=== PATIENT | male | born 1930 | race Caucasian/White ===

== ENCOUNTER → 2016-08-04 | Outpatient (CLI) | payer MEDICARE, BC | LOC: MW.CHUR 09:56 | PROVIDERS: ATTEND Urology | DX: N40.1 Benign prostatic hyperplasia with lower urinary tract symptoms (principal); R97.20 Elevated prostate specific antigen [PSA] | CPT/HCPCS: 36415; 84153; G0463 ==

== ENCOUNTER → 2016-08-08 | Outpatient (CLI) | payer MEDICARE, BC | LOC: MW.CHFP 10:48 | PROVIDERS: ATTEND Family Medicine | DX: E11.49 Type 2 diabetes mellitus with other diabetic neurological complication (principal); G62.9 Polyneuropathy, unspecified | CPT/HCPCS: 36415; 82607; 84443; 99214 ==

== ENCOUNTER → 2016-09-06 | Outpatient (CLI) | payer MEDICARE, BC ==
[2016-09-06 08:36] LABS: CHLORIDE,CL 108 mmol/L (98-110); SODIUM,NA 141 mmol/L (136-146)
== END ==
LOC: MW.CHRC 07:57
PROVIDERS: ATTEND Family Medicine
DX: I10 Essential (primary) hypertension (principal); E78.00 Pure hypercholesterolemia, unspecified; E11.9 Type 2 diabetes mellitus without complications
CPT/HCPCS: 36415; 80053; 80061; 83036

== ENCOUNTER → 2016-09-07 | Outpatient (CLI) | payer MEDICARE, BC | LOC: MW.CHFP 08:00 | PROVIDERS: ATTEND Family Medicine | DX: E11.49 Type 2 diabetes mellitus with other diabetic neurological complication (principal); E11.21 Type 2 diabetes mellitus with diabetic nephropathy; E78.00 Pure hypercholesterolemia, unspecified; I10 Essential (primary) hypertension | CPT/HCPCS: 99215 ==

== ENCOUNTER 2019-10-23 19:03 | Emergency (ER) | payer MEDICARE, BC ==
[2019-10-23] MEDS ORDERED: Sodium Chloride 0.9% 1,000 ML IV ONE (19:19)
[2019-10-23] MEDS ORDERED: Ondansetron 4 MG/2 ML SDV IVPUSH ONE (19:19)
[2019-10-23 19:37] LABS: CARBON DIOXIDE,CO2 28.2 mmol/L (21.0-32.0); POTASSIUM,K 4.5 mmol/L (3.5-5.1)
--- NOTE | 2019-10-23 19:41 | EDM.PDOC ---
ED HPI GENERAL MEDICAL PROBLEM - General Chief Complaint: Abdominal Pain Stated Complaint: EMS Time Seen by Provider: 10/23/19 19:08 Source of Information: Reports: Patient History Limitations: Reports: No Limitations - History of Present Illness INITIAL COMMENTS - FREE TEXT/NARRATIVE: HISTORY AND PHYSICAL: History of present illness: This is an 89-year-old gentleman with a history significant for type 2 diabetes, coronary artery disease, who presents the ER today complaining of pain to his left side of the abdomen of started yesterday. Patient reports the pain yesterday was tolerable however this evening after eating dinner he reports the pain got much worse. Patient reports that he was able to eat a little bit of chicken this evening approximate 1 hour prior to arrival for dinner. Patient denies any recent fevers, shakes, chills. Patient with some nausea with no vomiting or diarrhea. Patient denies any dysuria frequency or urgency. Patient denies any melena or bright red blood per rectum. Patient denies any hematuria. Patient denies any history of diverticulitis or diverticulosis that he knows of in the past. Patient denies any history of kidney stones. Patient reports that he has a virgin abdomen with no prior abdominal surgeries. Patient reports he has had multiple stents in the past to his heart. No other abdominal or chest surgeries. Patient reports he has 1 drink every night with his . Patient reports he stopped smoking tobacco approximately 30 years ago. Patient denies any drugs. Patient has no known drug allergies. Review of systems: As per history of present illness and below otherwise all systems reviewed and negative. Past medical history: As per history of present illness and as reviewed below otherwise noncontri butory. Surgical history: As per history of present illness and as reviewed below otherwise noncontributory. Social history: No reported history of drug or alcohol abuse. Family history: As per history of present illness and as reviewed below otherwise noncontributory. Physical exam: Constitutional: Patient is oriented to person, place, and time. Appears well- developed and well-nourished. No distress. HEENT: Moist mucous membranes Head: Normocephalic and atraumatic Eyes: Right eye exhibits no discharge. Left eye exhibits no discharge. No scleral icterus Neck: Normal range of motion. No tracheal deviation present. Cardiovascular: Normal rate and regular rhythm. Pulmonary: Effort normal, no respiratory distress. Abd: Soft, nondistended, no rebound/guarding, no psoas or obturator signs, no tenderness at Mcberney's point, no Torres's sign. Pt does not present with an exam that would be consistent with an acute surgical abdomen at this time. Tenderness to palpation left side of his abdomen greatest in the left lower quadrant. Normal active bowel sounds Musculoskeletal: Normal range of motion Neurologic: Alert and oriented to person, place and time. Skin: [place], warm and dry. Psychiatric: Normal mood and affect. Behavior is normal. Judgment and thought content normal. Nursing note and vital signs have been reviewed Impression: This is a 89-year-old gentleman who presents ER today secondary to left lower quadrant abdominal pain that started yesterday and is worsening today. Patient has a virgin abdomen. Patient denies any urinary symptoms. Patient has any testicular pain. Patient's pain does not appear to be consistent with an acute surgical abdomen at this time. Patient will be given IV fluids and Zofran I will check a CBC, CMP, lipase and a CT scan of the abdomen pelvis without contrast. 8:41 PM: Patient's labs and studies have returned. Patient CT scan does not show any acute pathology. Patient does have a thoracic aneurysm on his CT scan that has been discussed with him and he will follow-up with his doctor for this. There is no evidence of diverticulitis, pancreatitis, intra-abdominal pathology. Patient's labs do show a slightly elevated WBC count with a normal differential. Repeat exam reveals patient with mild tenderness to palpation to the left lower quadrant. Once again the patient does not present with any signs or symptoms of an acute surgical abdomen. Abd: Soft, nondistended, no rebound/guarding, no psoas or obturator signs, no tenderness at Mcberney's point, no Torres's sign. Pt does not present with an exam that would be consistent with an acute surgical abdomen at this time normoactive bowel sounds. Mild tenderness palpation left lower quadrant. Patient has been given Toradol 15 mg IV after the CT report. Although the patient's lipase is slightly elevated it does not appear to be consistent with pancreatitis by CT scan and by physical exam. Patient presentation appears to be more consistent with diverticulitis. Patient will be empirically started on Levaquin and Flagyl empirically treat him for possible early diverticulitis. Patient be given a prescription for Ultram, Zofran, Levaquin, Flagyl and instructed to follow-up with a primary care physician. Reassessment at the time of disposition demonstrates that the patient is in no acute distress. The patient has remained stable throughout the entire ED visit and is without objective evidence for acute process requiring urgent intervention or hospitalization. The patient is stable for discharge, counseling is provided as documented above, discussed symptomatic treatment and specific conditions for return. I have spoken with the patient/caregive and discussed todays findings, in addition to providing specific details for the plan of care. Questions are answered and there is agreement with the plan. Plan: See above Treatments DIRECTOR OF SAFETY AND SECURITY: Reports: IV/IO Abdomen Pain Score (Numeric/FACES): 8 - Related Data Allergies Allergy/AdvReac Type Severity Reaction Status Date / Time No Known Allergies Allergy Verified 10/23/19 20:13 Home Meds: Home Meds Glimepiride 1 mg PO ASDIRECTED 10/23/19 [History] Pregabalin [Lyrica] 100 mg PO DAILY 10/23/19 [History] Simvastatin [Zocor] 80 mg PO BEDTIME 10/23/19 [History] lisinopriL [Lisinopril] 10 mg PO DAILY 10/23/19 [History] rOPINIRole [Requip] 1 mg PO BEDTIME 10/23/19 [History] Past Medical History HEENT History: Reports: Hard of Hearing Cardiovascular History: Reports: Blood Clots/VTE/DVT, High Cholesterol, Hypertension, [place] Respiratory History: Reports: None Gastrointestinal History: Reports: None Genitourinary History: Reports: None Musculoskeletal History: Reports: None Neurological History: Reports: None Psychiatric History: Reports: None Endocrine/Metabolic History: Reports: Diabetes, Type II Insulin Pump Model and Credit Union Teller: None Hematologic History: Reports: None Immunologic History: Reports: None Oncologic (Cancer) History: Reports: None Dermatologic History: Reports: None - Infectious Disease History Infectious Disease History: Reports: None - Past Surgical History Head Surgeries/Procedures: Reports: None Cardiovascular Surgical History: Reports: Coronary Artery Stent Musculoskeletal Surgical History: Reports: Other (See Below) Other Musculoskeletal Surgeries/Procedures:: back surgery Social & Family History - Family History Family Medical History: Noncontributory - Tobacco Use Smoking Status *Q: Former Smoker Used Tobacco, but Quit: No - Caffeine Use Caffeine Use: Reports: Coffee - Recreational Drug Use Recreational Drug Use: No ED ROS GENERAL - Review of Systems Review Of Systems: Comprehensive ROS is negative, except as noted in HPI. ED EXAM, GENERAL - Physical Exam Exam: See Below EKG INTERPRETATION EKG Interpretation Comments: EKG: Normal sinus rhythm heart rate of [address]-T wave abnormalities Normal axis No evidence of ST elevation [place] As interpreted by ER physician: Kaity Course - Vital Signs Last Recorded V/S: Last Vital Signs Temp 97.1 F 10/23/19 19:09 Pulse 62 10/23/19 19:09 Resp 18 10/23/19 19:09 BP 126/81 10/23/19 19:09 Pulse Ox 97 10/23/19 19:09 - Orders/Labs/Meds Labs: Laboratory Tests 10/23/19 10/23/19 10/23/19 Range/Units 19:00 19:10 19:10 WBC 15.13 H (4.0-11.0) K/uL RBC 4.45 L (4.50-5.90) M/uL Hgb 13.6 (13.0-17.0) g/dL Hct 42.1 (38.0-50.0) % MCV 94.6 (80.0-98.0) fL MCH 30.6 (27.0-32.0) pg MCHC 32.3 (31.0-37.0) g/dL RDW Std Deviation 57.4 (28.0-62.0) fl RDW Coeff of Nataliia 17 H (11.0-15.0) % Plt Count 301 (150-400) K/uL MPV 10.10 (7.40-12.00) fL Neut % (Auto) 43.6 L (48.0-80.0) % Lymph % (Auto) 49.6 H (16.0-40.0) % [place] % (Auto) 4.1 (0.0-15.0) % Eos % (Auto) 2.6 (0.0-7.0) % Baso % (Auto) 0.1 (0.0-1.5) % Neut # (Auto) 6.6 H (1.4-5.7) K/uL Lymph # (Auto) 7.5 H (0.6-2.4) K/uL [place] # (Auto) 0.6 (0.0-0.8) K/uL Eos # (Auto) 0.4 (0.0-0.7) K/uL Baso # (Auto) 0.0 (0.0-0.1) K/uL Nucleated RBC % 0.0 /100WBC Nucleated RBCs # 0 K/uL Sodium 138 (136-148) mmol/L Potassium 4.5 (3.5-5.1) mmol/L Chloride 102 (98-107) mmol/L Carbon Dioxide 28.2 (21.0-32.0) mmol/L BUN 25 H (7.0-18.0) mg/dL Creatinine 1.6 H (0.8-1.3) mg/dL Est Cr Clr Drug Dosing 31.91 mL/min Estimated GFR (MDRD) 41.0 ml/min Glucose 126 H (74-106) mg/dL Calcium 9.4 (8.5-10.1) mg/dL Total Bilirubin 0.3 (0.2-1.0) mg/dL AST 18 (15-37) IU/L ALT 27 (14-63) IU/L Alkaline Phosphatase 80 (46-116) U/L Total Protein 7.0 (6.4-8.2) g/dL Albumin 3.8 (3.4-5.0) g/dL Globulin 3.2 (2.6-4.0) g/dL Albumin/Globulin Ratio 1.2 (0.9-1.6) Lipase 453 H (73-393) U/L Urine Color YELLOW Urine Appearance CLEAR Urine pH 6.0 (5.0-8.0) Ur Specific [place] <= 1.005 (1.001-1.035) Urine Protein NEGATIVE (NEGATIVE) mg/dL Urine Glucose (UA) NEGATIVE (NEGATIVE) mg/dL Urine Ketones NEGATIVE (NEGATIVE) mg/dL Urine Occult Blood NEGATIVE (NEGATIVE) Urine Nitrite NEGATIVE (NEGATIVE) Urine Bilirubin NEGATIVE (NEGATIVE) Urine Urobilinogen 0.2 (<2.0) EU/dL Ur Leukocyte Esterase NEGATIVE (NEGATIVE) Meds: Medications Discontinued Medications Generic Name Dose Route Start Last Admin Trade Name Freq PRN Reason Stop Dose Admin Sodium Chloride 1,000 mls @ 1,000 mls/hr 10/23/19 19:19 10/23/19 19:51 Normal Saline IV 10/23/19 20:18 1,000 mls/hr BOLUS ONE Administration Ketorolac Tromethamine 15 mg 10/23/19 20:14 Toradol IVPUSH 10/23/19 20:15 ONETIME ONE Levofloxacin 500 mg 10/23/19 20:27 Levaquin PO 10/23/19 20:28 ONETIME ONE Metronidazole 500 mg 10/23/19 20:27 Metronidazole PO 10/23/19 20:28 ONETIME ONE Ondansetron HCl 4 mg 10/23/19 19:19 10/23/19 19:51 Zofran IVPUSH 10/23/19 19:20 4 mg ONETIME ONE Administration Departure - Departure Time of Disposition: 20:43 Disposition: Home, Self-Care 01 Condition: Good Clinical Impression: Diverticulitis, Abdominal pain - Discharge Information *PRESCRIPTION DRUG MONITORING PROGRAM REVIEWED*: Not Applicable *COPY OF PRESCRIPTION DRUG MONITORING REPORT IN PATIENT JEN: Not Applicable Instructions: Diverticulitis, Abdominal Pain, Adult, [id number] Referrals: Mars Crystal MD [Primary Care Provider] - Forms: ED Department Discharge Additional Instructions: Your seen and evaluated in the ER today secondary to your abdominal pain. Although your white blood cell count was slightly elevated, the remainder of your blood tests and your urinalysis were all normal. Your images that were obtained today revealed some incidental findings that were not related to your primary complaint. Those findings do not appear emergent in nature, however, will require the attention of your family physician and further outpatient evaluation. Please follow up with your primary doctor to have these addressed. Your CT scan did not reveal any acute pathology or any cause for the pain that you are having at this time. 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 In the descending aorta you have a 2.9 cm aneurysm. Your abdominal aorta did not show any evidence of aneurysm. There was also an abnormality on your lumbar 2 vertebral body. This abnormality was a lucent lesion seen on the vertebral body of L2. A lucent lesion like this could be suspicious for a possible osteolytic metastases. Although all your tests today were normal, your exam and your symptoms appear to be consistent with diverticulitis. We will treat you empirically for early diverticulitis with Levaquin and Flagyl. These are antibiotics that he should take until they are completed. You will also be given a prescription for Zofran to help you with nausea and a prescription for Ultram to help you with pain until you are able to see your family doctor. Please make an appointment to see your family doctor within the next 1 to 2 days to be reevaluated for your pain. Please return the ER if you start developing fevers or worsening pain before you are able to see your family physician. The following information is given to patients seen in the emergency department who are being discharged to home. This information is to outline your options for follow-up care. We provide all patients seen in our emergency department with a follow-up referral. The need for follow-up, as well as the timing and circumstances, are variable depending upon the specifics of your emergency department visit. If you don't have a primary care physician on staff, we will provide you with a referral. We always advise you to contact your personal physician following an emergency department visit to inform them of the circumstance of the visit and for follow-up with them and/or the need for any referrals to a consulting specialist. The emergency department will also refer you to a specialist when appropriate. This referral assures that you have the opportunity for follow-up care with a specialist. All of these measure are taken in an effort to provide you with optimal care, which includes your follow-up. Under all circumstances we always encourage you to contact your private physician who remains a resource for coordinating your care. When calling for follow-up care, please make the office aware that this follow-up is from your recent emergency room visit. If for any reason you are refused follow-up, please contact the [facility] Emergency Department at and asked to speak to the emergency department charge nurse. Sepsis Event Note (ED) - Evaluation Sepsis Screening Result: No Definite Risk - Focused Exam Vital Signs: Vital Signs Temp Pulse Resp BP Pulse Ox 10/23/19 19:09 97.1 F 62 18 126/81 97
--- NOTE | 2019-10-23 20:03 | CT ---
CT abdomen and pelvis Technique: Multiple axial sections were obtained from above the dome of the diaphragm inferiorly through the pubic symphysis. Intravenous contrast and oral contrast not given. Comparison: No prior abdominal imaging is available. Findings: Visualized ascending aorta is aneurysmal with AP dimension of 4.5 cm. Descending thoracic aorta measures 2.9 cm. Coronary artery calcification is seen. Noncontrast appearance of the liver and spleen appears within normal limits. Right kidney shows a cyst measuring 1.8 cm. No abnormal calcifications are seen within the kidneys. Both ureters are prominent down to the bladder. Ureters contain no calculi. Bladder is somewhat distended with urine. These findings suggest an element of bladder outlet obstruction. Pancreas shows no abnormality. Gallbladder contains no calcified gallstones. Aorta shows atherosclerotic change. Abdominal aorta shows no aneurysm. No retroperitoneal adenopathy or mesenteric abnormalities are seen. No pelvic mass or adenopathy is seen. Prostate gland is somewhat enlarged. Appendix is seen and is normal in size. Bone window settings were reviewed. Diffuse degenerative change is scattered throughout the spine. There is a lucent lesion being seen within the vertebral body of L2 extending into the left side of the pedicle. 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 No other discrete osteolytic change is seen. Degenerative cysts are noted within the superior acetabulum of both hips. Impression: 1. Mildly dilated ureters with dilated bladder. No ureteral calculi are seen. Prostate gland is enlarged. As mentioned above, bladder and ureter findings most likely caused by an element of bladder outlet obstruction. 2. Visualized ascending thoracic aorta is aneurysmal at 4.5 cm. Descending aorta measures 2.9 cm. Abdominal aorta shows no aneurysm. 3. Lytic lesion within L2 as described above. 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 No other osteolytic lesions, however are seen. 4. Other findings which are not acute as described above. Diagnostic code #9 Study was dictated in MDT
[2019-10-23] MEDS ORDERED: Ketorolac 15 MG/ML SDV IVPUSH ONE (20:14)
[2019-10-23] MEDS ORDERED: Levofloxacin 500 MG Tab PO ONE (20:27)
[2019-10-23] MEDS ORDERED: metroNIDAZOLE 250 MG Tab PO ONE (20:27)
== END 2019-10-23 21:10 | disposition home or self-care (01) ==
LOC: MW.ED 19:03
DX: K57.92 Diverticulitis of intestine, part unspecified, without perforation or abscess without bleeding (principal); I10 Essential (primary) hypertension; E11.9 Type 2 diabetes mellitus without complications; I25.2 Old myocardial infarction; E78.00 Pure hypercholesterolemia, unspecified; Z87.891 Personal history of nicotine dependence; Z79.899 Other long term (current) drug therapy
CPT/HCPCS: 36415; 74176; 80053; 81003; 83690; 85025; 93005; 96361; 96374; 96375; 99285; A9270; J1885; J2405; J7030; 99283